=== PATIENT | male | born 1990 | race American Indian/Alaskan Native ===

== ENCOUNTER 2019-11-27 04:25 | Emergency (ER) | payer SELFPAY ==
--- NOTE | 2019-11-27 05:38 | XRay Report ---
RIGHT WRIST 4 VIEWS INDICATION: Right wrist pain after fall. COMPARISON: No relevant prior imaging study available. FINDINGS: No acute fracture or dislocation. Carpal alignment is normal. IMPRESSION: 1. No acute fracture. BILATERAL HANDS, 6 IMAGES INDICATION: Bilateral hand pain after fall. COMPARISON: No relevant prior imaging study available. FINDINGS: Right hand: There is a punctate ossific density along the dorsum of hand at the level of the carpomet acarpal articulations. This is only seen on the lateral view. No other osseous abnormalities. No fore ign bodies. Left hand: No acute fracture or dislocation. No foreign bodies. IMPRESSION: 1. There is a punctate fracture fragment along the dorsum of the right hand which likely arises from the base of one of the metacarpals. The metacarpals are overlapped on the lateral view, which is the only view this fracture is seen. This makes it difficult to determine which metacarpal is fractured. Correlate with point tenderness. Signer Name: Arvind Bryant MD Signed: 11/27/2019 5:33 AM Workstation Name: [id number][id number]
== END 2019-11-27 05:00 | disposition left against medical advice (07) ==
LOC: ED 04:25
DX: M25.531 Pain in right wrist (principal); Z53.21 Procedure and treatment not carried out due to patient leaving prior to being seen by health care provider